=== PATIENT | male | born 1955 | race African-American/Black ===

== ENCOUNTER 2020-05-21 22:55 | Emergency (ER) | payer MEDICARE, MEDICAID ==
[~2020-05-21] VITALS: Ht 170.2 cm; Wt 68.0 kg
[2020-05-21 22:59] VITALS: BP 158/94
[2020-05-21] MEDS ORDERED: HYDROCODONE/ACETAMINOPHEN 5/325MG TABLET PO ONE (23:30)
== END 2020-05-22 02:02 | disposition home or self-care (01) ==
LOC: ER 22:55
DX: S82.401A Unspecified fracture of shaft of right fibula, initial encounter for closed fracture (principal); S93.144A Subluxation of metatarsophalangeal joint of right lesser toe(s), initial encounter; I10 Essential (primary) hypertension; V29.88XA Motorcycle rider (driver) (passenger) injured in other specified transport accidents, initial encounter; Y93.89 Activity, other specified; Y92.89 Other specified places as the place of occurrence of the external cause; Y99.8 Other external cause status
CPT/HCPCS: 29515; 73610; 73630; 99284